=== PATIENT | female | born 1970 | race Caucasian/White ===

== ENCOUNTER 2024-07-03 13:54 | Emergency (ER) | payer OTHER, BC ==
[~2024-07-03] VITALS: Ht 157.5 cm; Wt 89.4 kg
[~2024-07-03 13:54] MED LIST: CIPROFLOXACIN500 MG PO; DICLOFENAC SOD100 MG PO; ONDANSETRON ODT4 MG PO; TRAMADOL HCL50 MG PO
[2024-07-03] MEDS ORDERED: ACETAMINOPHEN 500 MG TAB PO ONE (14:45)
[2024-07-03 16:14] VITALS: BP 142/100
== END 2024-07-03 16:16 | disposition home or self-care (01) ==
LOC: ED 13:54
DX: S63.501A Unspecified sprain of right wrist, initial encounter (principal); W01.0XXA Fall on same level from slipping, tripping and stumbling without subsequent striking against object, initial encounter; J45.909 Unspecified asthma, uncomplicated
CPT/HCPCS: 73110; 99283; A9270